=== PATIENT | female | born 1965 | race Caucasian/White ===

== ENCOUNTER → 2016-06-23 | Outpatient (CLI) | payer BC ==
[~2016-06-23] MED LIST: ESTR1TAB37 PO; MINO100T10 PO
--- NOTE | 2016-06-23 18:28 | Diagnostic Imaging Report ---
Bilateral screening mammogram. The current study was also evaluated with a Computer Aided Detection (CAD) system. INDICATION: Screening. No current complaints stated on the questionnaire. COMPARISON: 01/12/15. FINDINGS: The breasts are composed of scattered fibroglandular densities. There are scattered benign-appearing calcifications. Allowing for technique and positional differences, no suspicious change is seen. IMPRESSION: No significant change. ACR BI-RADS Category 2: Benign findings. Result letter will be mailed to the patient. Note: At least 10% of breast cancer is not imaged by mammography. Dictated by: Dictated on workstation # [id number]
== END ==
LOC: RAD 09:32
PROVIDERS: ATTEND Obstetrics & Gynecology
DX: Z12.31 Encounter for screening mammogram for malignant neoplasm of breast (principal)

== ENCOUNTER 2016-07-07 09:30 | Outpatient (CLI) | payer BC ==
[~2016-07-07] VITALS: Ht 160 cm; Wt 62.6 kg
== END 2016-07-07 09:36 ==
LOC: PREOP 09:30
PROVIDERS: ATTEND Internal Medicine
DX: Z01.818 Encounter for other preprocedural examination (principal); Z12.11 Encounter for screening for malignant neoplasm of colon

== ENCOUNTER 2016-07-08 06:51 | Day surgery (SDC) | payer BC ==
[~2016-07-08] VITALS: Ht 160 cm; Wt 62.6 kg
[2016-07-08] MEDS ORDERED: 1/2 NS IV SOLUTION 1,000 ML IV STA (07:07)
[2016-07-08] MEDS ORDERED: 1/2 NS IV SOLUTION 1,000 ML IV ONE (07:12)
--- NOTE | 2016-07-08 07:13 | HISTORY AND PHYSICAL ---
DICTATING PHYSICIAN: Dr. Barksdale DATE OF ADMISSION: 07/08/2016 REFERRING PHYSICIAN: Dr. Whitlock The is a 51-year-old white female referred for screening colonoscopy. For constipation issues 11 years ago she did undergo colonoscopy that was unremarkable by Dr. Murray. There is apparently a family history for colon polyps in her father who is living at the age of 74. There is no known history for colon cancer. Her mother at a relatively early age secondary to suicide. The patient reports that other than constipation issues she occasionally takes senna for but mostly maintains fiber supplementation, increase fluids and exercise for control. She has had no other bowel issues. She denies bright red blood per rectum or melena. She has made some major lifestyle changes over the past year and has lost 28 pounds. PAST MEDICAL HISTORY: 1. Significant for some depression. 2. Acne rosacea for which he has just been on minocycline for the past week. MEDICATIONS: 1. She takes p.r.n. Xanax. 2. Prozac 20 mg daily. 3. Estrogen. PAST SURGICAL HISTORY: She is a total abdominal hysterectomy at the age of 39, secondary to endometriosis and her first and only child in 1989. SOCIAL HISTORY: She works in [employer] with no past smoking history and occasional social alcohol intake. There have been no past history of illicit drug use. PHYSICAL EXAMINATION: Reveals a pleasant white female in no acute distress. VITAL SIGNS: Blood pressure was 110/68, heart rate 72 and regular. HEENT: Oral cavity reveals Mallampati class II configuration. NECK: Revealed no JVD, adenopathy or bruits. CHEST: Clear. CV: Reveals regular rate and rhythm without murmur, S3 or S4. ABDOMEN: Soft, supple without masses, organomegaly or tenderness. Bowel sounds are positive. No bruits are noted. EXTREMITIES: Reveal no cyanosis, clubbing, or edema. ASSESSMENT: The patient was set-up for screening colonoscopy on the . She will be 52 later this year, but is undergoing screening a little early due to reported family history for colon polyps index case being her father. Prep instructions with the Rosenthal-prep kit were given and questions were answered. EMR was reviewed with 30 minutes of lshg-pz-ywvd care time being spent. Another 10 minutes of EMR reviewed time and another 10 to 15 minutes of staff time for going over prep instructions and setting up colonoscopy performed today. Job ID: [id number] Dictated Date: 06/28/2016 11:44:00 Operating Room Rn Date: 06/28/2016 12:26:20/teri
[2016-07-08] MEDS ORDERED: FLUMAZENIL (ROMAZICON) 0.1 MG/ML 5 ML VIAL INJ PRN (07:15)
[2016-07-08] MEDS ORDERED: LIDOCAINE JELLY 2% (XYLOCAINE) 5 ML TUBE MM PRN (07:15)
[2016-07-08] MEDS ORDERED: NALOXONE 0.4 MG/ML 1 ML (NARCAN) VIAL IVP PRN (07:15)
[2016-07-08 07:37] VITALS: BP 115/84
[2016-07-08] MEDS ORDERED: LIDOCAINE JELLY 2% (XYLOCAINE) 5 ML TUBE ONE (07:43)
[2016-07-08] MEDS ORDERED: fentaNYL INJECTION 100 MCG/2 ML AMP ONE ×3 (07:43→08:28)
[2016-07-08] MEDS ORDERED: MIDAZOLAM 2 MG/2 ML (VERSED) VIAL ONE ×6 (07:43→08:49)
--- NOTE | 2016-07-08 07:53 | Pre-Op Note & Conscious Sedat ---
Pre-Operative Progress Note H&P Reviewed The H&P was reviewed, patient examined and no changes noted. Date H&P Reviewed: Jul 08, 2016 Time H&P Reviewed: 07:53 Conscious Sedation Pre-Proced ASA Class: 2 Airway Mallampati Classification: (tatitlek appropriate class) I. II. III, IV Lungs Heart ASA score ASA 1: a normal healthy patient ASA 2: a patient with a mild systemic disease (mid diabetes, controlled hypertension, obesity ASA 3: a patient with a severe systemic disease that limits activity (angina , COPD, prior Myocardial infarction) ASA 4: a patient with an incapacitating disease that is a constant threat to life (CHF, renal failure) ASA 5: a moribund patient not expected to survive 24 hrs. (ruptured aneurysm) ASA 6: a declared brain patient whose organs are being harvested. For emergent operations, add the letter E after the classification Grade 2 Sedation Plan: Analgesia, Amnesia, Plan communicated to team members, Discussed options with patient/fam, Discussed risks with patient/fam Note The patient is an appropriate candidate to undergo the planned procedure, sedation, and anesthesia. The patient immediately re-assessed prior to indication. ROSETTA CESPEDES MD Jul 08, 2016 07:53
[2016-07-08] MEDS: fentaNYL INJECTION 100 MCG/2 ML AMP IVP PRN ×5 (08:08→08:35)
[2016-07-08] MEDS: MIDAZOLAM 2 MG/2 ML (VERSED) VIAL IVP PRN ×5 (08:10→08:55)
[2016-07-08 09:30] VITALS: BP 124/84
[2016-07-08 10:00] VITALS: BP 132/88
[2016-07-08 10:19] VITALS: BP 132/88
--- NOTE | 2016-07-10 12:24 | PROCEDURE REPORT ---
PROCEDURE PHYSICIAN: ROSETTA CESPEDES DATE OF PROCEDURE: 07/08/2016 INDICATION FOR THE PROCEDURE: Screening colonoscopy. PROCEDURE: The patient was placed in left lateral left lateral decubitus position. Prior to undergoing colonoscopy, digital rectal evaluation was performed. Anal sphincter tone was normal and the perianal reflex was intact. The patient did a lot of perianal skin fold, puckering. There was evidence of for several grade I internal hemorrhoids with no active external hemorrhoids. No other abnormalities were noted to digital inspection of the anal canal or distal rectal vault. The colonoscope was inserted into the rectum and under direct visualization, advanced to the cecum. The cecum was identified by identification of the ileocecal valve and cecal strap. Photographic documentation was obtained. A careful inspection was made as the colonoscope was withdrawn. The quality of the prep was poor with a lot of murky liquid stool, not all of which could be suctioned due to port plugging. FINDINGS: Present in the distal rectum was some crinkling of the mucosa for which sessile adenomatous polyp could not be ruled out. A biopsy and ablation was performed. The tissue is submitted for histopathology. The remainder of the rectum was unremarkable. Present in the anal canal were several grade I internal hemorrhoids. No other rectal abnormalities were appreciated. The sigmoid colon, descending colon, transverse colon, ascending colon and cecum were otherwise unremarkable. ASSESSMENT: One questionable distal sessile rectal polyp for which the patient underwent biopsy and cauterization with no subsequent blood loss was noted. If there is no evidence for neoplasia would advocate repeat screening colonoscopy in 10 years, as the patient is not aware of any family history for colon cancer. Several grade I internal hemorrhoids were noted with an otherwise normal colonoscopy to the cecum. I thank you for the referral of this pleasant lady. Sincerely, Rosetta Cespedes Job ID: [id number] Dictated Date: 07/08/2016 11:58:46 Internal Audit Senior Manager Date: 07/10/2016 12:16:36 / teri
== END 2016-07-08 10:20 | disposition home or self-care (01) ==
LOC: ENDO 06:51
PROVIDERS: ATTEND Internal Medicine
DX: Z12.11 Encounter for screening for malignant neoplasm of colon (principal); K62.1 Rectal polyp; K64.0 First degree hemorrhoids
CPT/HCPCS: 88305

== ENCOUNTER → 2019-10-30 | Outpatient (CLI) | payer BC ==
--- NOTE | 2019-10-30 11:41 | Diagnostic Imaging Report ---
INDICATION: Routine screening. Comparison is made with prior mammogram from 10/27/2017 and 06/23/2016. 2-D and 3-D bilateral screening mammography was performed with CAD. Scattered fibroglandular densities are identified bilaterally. There are benign calcifications. No dominant mass or malignant appearing microcalcifications are seen. Axillae are unremarkable. IMPRESSION: BI-RADS Category 2 No mammographic features suspicious for malignancy are identified. ACR BI-RADS Category 2: Benign findings. Result letter will be mailed to the patient. Note: At least 10% of breast cancer is not imaged by mammography. Dictated by: Dictated on workstation # [id number]
== END ==
LOC: RAD 09:33
PROVIDERS: ATTEND Obstetrics & Gynecology
DX: Z12.31 Encounter for screening mammogram for malignant neoplasm of breast (principal)
CPT/HCPCS: 77063; 77067

== ENCOUNTER → 2021-02-24 | Outpatient (CLI) | payer BC ==
--- NOTE | 2021-02-24 12:53 | Diagnostic Imaging Report ---
INDICATION: Routine screening. COMPARISON: 10/30/2019 and 10/27/2017. TECHNIQUE: 2D and 3D bilateral screening mammography was performed with CAD. FINDINGS: Scattered fibroglandular densities are identified bilaterally. The parenchymal pattern is stable. No mass or malignant-appearing microcalcifications are seen. There are benign calcifications present. The axillae are unremarkable. IMPRESSION: No mammographic features suspicious for malignancy are identified. ACR BI-RADS Category 2: Benign findings. Result letter will be mailed to the patient. Note: At least 10% of breast cancer is not imaged by mammography. Dictated by: Dictated on workstation # [id number]
== END ==
LOC: RAD 09:45
PROVIDERS: ATTEND Obstetrics & Gynecology
DX: Z12.31 Encounter for screening mammogram for malignant neoplasm of breast (principal)
CPT/HCPCS: 77063; 77067

== ENCOUNTER → 2022-03-22 | Outpatient (CLI) | payer BC | LOC: CARD 08:09 | PROVIDERS: ATTEND Internal Medicine Cardiovascular Disease | DX: R94.31 Abnormal electrocardiogram [ECG] [EKG] (principal) ==

== ENCOUNTER → 2022-03-22 | Outpatient (CLI) | payer BC ==
--- NOTE | 2022-03-22 11:28 | Diagnostic Imaging Report ---
INDICATION: Routine screening. COMPARISON: 02/24/2021 and 10/30/2019. TECHNIQUE: 2D and 3D bilateral screening mammography was performed with CAD. FINDINGS: Scattered fibroglandular densities are identified bilaterally. There are benign calcifications in both breasts. No mass or malignant-appearing microcalcifications are seen. The axillae are unremarkable. IMPRESSION: No mammographic features suspicious for malignancy are identified. ACR BI-RADS Category 2: Benign findings. Result letter will be mailed to the patient. Note: At least 10% of breast cancer is not imaged by mammography. Dictated by: Dictated on workstation # [id number]
== END ==
LOC: RAD 08:02
PROVIDERS: ATTEND Obstetrics & Gynecology
DX: Z12.31 Encounter for screening mammogram for malignant neoplasm of breast (principal)
CPT/HCPCS: 77063; 77067; 93306

== ENCOUNTER → 2022-04-14 | Outpatient (CLI) | payer BC ==
[~2022-04-14] MED LIST changes: +CATHETER FLUSH 10 ML SYR IVP PRN
[2022-04-14 09:19] VITALS: BP 139/89
--- NOTE | 2022-04-18 16:24 | NUCLEAR STRESS TEST ---
TREADMILL NUCLEAR STRESS TEST Date of procedure: 04/14/2022. Primary care provider: Aleksandar Pugh MD. Admitting physician: Aaron Contreras Jr., MD. INDICATION: Abnormal electrocardiogram. BASELINE ELECTROCARDIOGRAM: Sinus rhythm with low voltage in the precordial leads and possible old septal myocardial infarction. STRESS TEST PROCEDURE: The patient was exercised for a total of 11 minutes and 35 seconds of the standard Miles protocol achieving a maximum MET level of 12.1. The resting heart rate was 68 bpm and the peak heart rate was 148 bpm, which represents 89% of the maximum predicted heart rate. The resting blood pressure was 139/89 mmHg and the peak blood pressure was 183/73 mmHg. This represents a normal heart rate and a normal blood pressure response to exercise. The test was stopped due to target heart rate attained. There was no chest discomfort during the test. There were no arrhythmias during the test. There were no significant stress induced electrocardiogram changes. The patient exhibited excellent exercise capacity for age. NUCLEAR PROCEDURE: The patient was administered 10.4 mCi of intravenous technetium 99m Tetrofosmin at rest for the rest images. The patient was subsequently administered 28.2 mCi of intravenous technetium 99 M Tetrofosmin at peak stress for the stress images. Following an appropriate wait after each injection, imaging was obtained. The images were subsequently processed and reformatted in the usual views. Gated imaging was obtained. The image quality was adequate with a mild degree of gastrointestinal attenuation artifact. CT attenuation correction was used as a adjunct to standard imaging. Both the corrected and uncorrected images were reviewed for interpretation. NUCLEAR RESULTS: There was normal myocardial perfusion in all segments without evidence of infarction or ischemia. There was normal left ventricular chamber size with an end-diastolic volume of 50 mL and an end-systolic volume of 15 mL. There was no evidence of transient ischemic dilatation. The TID ratio was 0.96. There was normal wall motion in all segments with a calculated ejection fraction of 71%. IMPRESSION: 1. Normal heart rate and blood pressure response to exercise. 2. There was no exercise-induced chest discomfort, arrhythmias, or electrocardiogram changes during the test. 3. The patient exhibited excellent exercise capacity for age at 11 minutes and 35 seconds of the standard Miles protocol. 4. There was normal myocardial perfusion in all segments without evidence of infarction or ischemia. 5. There was normal wall motion in all segments with a calculated ejection fraction of 71%. Certain portions of this document may have been dictated utilizing voice recognition technology. Inherent to this technology, typographical and grammatical errors may exist. As much as I am diligent to identify and correct these mistakes, some errors may remain in the document. AARON CONTRERAS JR, MD Apr 18, 2022 16:24
== END ==
LOC: CARD 08:15
PROVIDERS: ATTEND Internal Medicine Cardiovascular Disease
DX: R94.31 Abnormal electrocardiogram [ECG] [EKG] (principal)
CPT/HCPCS: 78452; 93017

== ENCOUNTER → 2022-08-24 | Outpatient (CLI) | payer BC ==
[~2022-08-24] MED LIST changes: -CATHETER FLUSH 10 ML SYR IVP PRN
--- NOTE | 2022-08-24 14:34 | Diagnostic Imaging Report ---
Indication: Bilateral breast pain. Comparison is made with prior mammogram from 03/22/2022 and 02/24/2021. 2-D and 3-D bilateral screening mammography was performed with CAD. CAD is utilized. The current study was also evaluated with a Computer Aided Detection (CAD) system. Scattered fibroglandular densities are identified bilaterally. The breast parenchymal pattern is stable. There are scattered benign calcifications. No mass or malignant-appearing microcalcifications are seen. Axillae are unremarkable. IMPRESSION: BI-RADS Category 2 No mammographic features suspicious for malignancy are identified. ACR BI-RADS Category 2: Benign findings. Result letter will be mailed to the patient. Note: At least 10% of breast cancer is not imaged by mammography. Dictated by: Dictated on workstation # [id number]
== END ==
LOC: RAD 14:03
PROVIDERS: ATTEND Nurse Practitioner Women's Health
DX: N64.4 Mastodynia (principal)
CPT/HCPCS: 77062; 77066